=== PATIENT | male | born 1990 | race Caucasian/White ===

== ENCOUNTER 2016-11-16 00:27 | Emergency (ER) | payer BC ==
--- NOTE | ~2016-11-16 | CR194 ---
[facility] A Service of [facility] & [facility] RADIOLOGY TEXT RESULTS PATIENT: LUÍS COLLIER LOCATION: CFTX : 89 UNIT #: [id number] AGE: [address]: Connor Luis SEX: M ORDER DR: [id number] [facility] [address] [place], [place] [address] [id number] E MR#: [id number] Acc #: [id number] NAME: LUÍS COLLIER : 1990 SEX: M STUDY DATE/TIME: 11/16/2016 1:46 UNIT: [place] ROOM: STUDY DESCRIPTION: CR Nasal Bones Min 3 Views Attending Physician: Connor Luis P.A.-C. Ordering Physician: Ed Doctor [id number] [facility] Primary Care Physician: Primary Care Physician No MEDICAL IMAGING REPORT This report is preliminary unless electronic signature is present EXAM Nasal bones HISTORY Hit in nose with softball tonight, bloody nose. FINDINGS Examination demonstrates a complete, angulated fracture through the nasal bone with about 2 mm of depression of the distal fracture fragment. No evidence of sinus fracture and the orbits appear intact. Dentition unremarkable. IMPRESSION Displaced, oblique fracture through the distal tip of the nasal bone with about 2.5 mm of depression. Dictated by... Sona Garcia M.D. THIS IS AN ELECTRONICALLY VERIFIED REPORT Sona Garcia M.D. at 11/17/2016 10:33 PM TOSHIA/jodie TD: 11/16/2016 07:18 JOB #: [id number] MEDICAL IMAGING REPORT Page 1 of 1 COPY
== END 2016-11-16 02:46 | disposition home or self-care (01) ==
LOC: CED 00:27 → CFTX 00:27
DX: S02.2XXA Fracture of nasal bones, initial encounter for closed fracture (principal); W21.07XA Struck by softball, initial encounter; Y93.64 Activity, baseball; Y92.830 Public park as the place of occurrence of the external cause
CPT/HCPCS: 70160; 99283